=== PATIENT | female | born 2000 | race Caucasian/White ===

== ENCOUNTER 2020-06-03 10:53 | Emergency (ER) | payer BC, SELFPAY ==
[2020-06-03 10:56] VITALS: BP 131/91; PULSE 111; RESP 17; TEMP 36.3; O2SAT 98; BMI 24.7
--- NOTE | 2020-06-03 11:30 | ED.DCSUM_ITS ---
History of Present Illness Chief Complaint: Rash Informant: Patient Pain: Vulvar Pain Onset: Days Context: Gradual Onset Timing: Intermittent Sexually: Active, Single Partner Control: BCP Narrative: Patient is a 19-year-old female with no significant past medical history presenting with her mother for concern of a wart or some type of infection in her vaginal area. Patient states she intermittently gets rash/irritation of her vagina which seems to be more associated with using different soaps or detergents. She notes for the past week however she is had increased redness and swelling of her vaginal area that is worse than ever been before. States is also painful. She also notes that there seems to be some type of mole or wart on her vagina that she is concerned about. She denies any abnormal vaginal discharge or bleeding. Last menstrual period was a little bit more than a week ago. Patient is on oral control pills and is not concerned for . She is not currently have a in house counsel. Patient is no other complaints at this time. She denies any urinary symptoms and she denies any burning or discomfort of her vulva with urination Past Medical History - Allergies and Home Meds Allergies/Adverse Reactions: Allergies No Known Allergies Allergy (Verified 06/03/20 10:56) Primary Care Physician: Care Physician,No Primary [Primary Care Provider] - Past Medical History: None Surgical History: no surgical history Lives: With Family Review of Systems General: Denies: Chills, Fever, Sweats Eyes: Denies: Visual changes - bilaterally, Diplopia ENT: Denies: Rhinorrhea, Sore throat Cardiovascular: Denies: Chest pain, Palpitations Respiratory: Denies: Dyspnea, Cough, Dyspnea on exertion Gastrointestinal: Denies: Abdominal pain, Nausea, Vomiting, Diarrhea, Melena, Hematochezia Genitourinary: Reports: - - Vaginal irritation, vaginal lesion. Denies: Dysuria, Hematuria, Frequency Musculoskeletal: Denies: Back pain, Extremity Pain Skin: Denies: Rash, Wounds Neurological: Denies: Headache, Weakness, Numbness Physical Exam Vital Signs/Narrative: Vital Signs Temp Pulse Resp BP Pulse Ox 06/03/20 10:56 97.4 F L 111 H 17 131/91 H 98 Inital Vital Signs reviewed: Yes General: Well nourished, Well developed Head: Normocephalic, Atraumatic Eyes: Perrl, EOMI ENT: Moist mucous membranes, No rhinorrhea Neck: Supple, Nontender Cardiovascular: Regular rate, Regular rhythm, No murmurs Respiratory: No distress, CTA bilaterally, Chest nontender Abdomen: Soft, Nontender, Nondistended, Normal bowel sounds : Speculum exam: Normal external genitalia, No vaginal lesions, No vaginal discharge, No blood in vault, No active bleeding, Normal cervix, - - Centimeter hard cystic structure palpated at the left inferior labia minora, no associated fluctuance or tenderness. Bimanual exam: No cervical motion tenderness, Os closed, Nontender adnexa, bilat Back: Nontender, Normal Inspection. Negative for: CVA tenderness Extremities: Nontender, No edema Skin: Normal color, No rash Neurological: Alert, Oriented x3, Cranial nerves II-XII grossly intact, Normal Strength, Normal Sensation Psychological: Normal affect Diagnostic/Tx/Re-eval - Medical Decision/Diagnostic Studies GC and Chlamydia cultures sent: Yes Patient is evaluated for vaginal irritation and a bump on her left labia that is been irritating more for the past week. On exam patient does not have any signs of herpetic lesions, abscess or sexually-transmitted infections. Her exam is quite benign. She does have a palpable 1 cm mass of the left posterior labia which could just be her Bartholin gland. I do not think antibiotics or I&D are indicated at this time. Patient be given gynecology for further follow-up. She is counseled that she did not receive a Pap smear today and needs to follow-up with a in house counsel further. ED Disposition - Plan for ED Patient: Disposition: Home or Assisted Living Diagnosis: Vaginal irritation Instructions: Preventing Vaginal Infection, ED Bartholins Cyst No Infec Referrals: Munira Lowry MD [STAFF PHYSICIAN] - Additional Instructions: Your vaginal exam was largely normal today. Do not see any obvious signs of infection or warts. Please follow-up for further evaluation with a in house counsel. It is possible that the mass you are feeling is your Bartholin gland or cyst but does not appear to be infected at this time.
[2020-06-03 11:43] LABS: Red Blood Cells-Urine 0 SEEN /hpf (0-5)
[2020-06-03 11:53] LABS: Color, Urine Yellow (Yellow); Glucose, Dipstick Normal (Normal); Ketone-Dipstick 5 mg/dl (Negative); Leukocyte Esterase-Dipstick 25 /ul (Negative); Nitrite-Dipstick Negative (Negative); Occult Blood-Urine 10 /ul (Negative); Protein-Dipstick 15 mg/dl (Negative); Specific Gravity, Urine 1.025 (1.002-1.030); Urine Bilirubin Dipstick Negative (Negative); Urine Clarity Clear (Clear); Urine Urobilinogen Normal (Normal)
[2020-06-03 11:57] LABS: Internal QC Validated? YES +Cl - CLEAR BKGD; Pregnancy, Urine Negative Negative
[2020-06-03 12:10] LABS: Bacteria 3+ /hpf (None Seen); Mucous, Urine 2+ /hpf (<or=2+); Squamous Epithelial Cells - UA 10-25 SEEN /hpf (5-10); White Blood Cells 0-5 SEEN /hpf (0-5)
[2020-06-03 13:26] LABS: Chlamydia Trachomatis by PCR Negative (Negative); Neisserai gonorrhoeae by PCR Negative (Negative); Probe Check PASS; Sample Adequacy Control PASS; Specimen Processing Control PASS
== END 2020-06-03 12:52 | disposition home or self-care (01) ==
PROVIDERS: Emergency Provider Emergency Medicine
DX: N89.8 Other specified noninflammatory disorders of vagina (principal)
CPT/HCPCS: 81001; 81025; 87210; 87491; 87591; 99282